=== PATIENT | female | born 1970 | race Two or more races ===

== ENCOUNTER 2023-11-30 10:05 | Outpatient (CLI) | payer OTHER | END 2023-11-30 10:08 | disposition home or self-care (01) | LOC: SONOGRAMA 10:05 | PROVIDERS: ATTEND Pathology Anatomic Pathology & Clinical Pathology | DX: D44.0 Neoplasm of uncertain behavior of thyroid gland (principal); E04.2 Nontoxic multinodular goiter ==

== ENCOUNTER 2024-03-21 10:45 | Inpatient (IN) | payer OTHER ==
[~2024-03-21] VITALS: Ht 91.4 cm; Wt 5.0 kg
[2024-03-21 12:20] VITALS: BP 116/79
[2024-03-21] MEDS ORDERED: COZAAR25 MG PO (12:23)
[2024-03-21] MEDS ORDERED: JARDIANCE10 MG PO (12:24)
[2024-03-21] MEDS ORDERED: TRIGLIDE (12:24)
[2024-03-21 12:25] LABS: URINE APPEARANCE Clear; URINE BILIRRUBIN Negative (NEGATIVE); URINE BLOOD Negative; URINE COLOR Yellow; URINE KETONE Negative (NEGATIVE); URINE LEUKOCYTE Negative; URINE NITRATE Negative; URINE UROBILINOGEN 0.2 E.U./dl
[2024-03-21] MEDS ORDERED: LOVAZA1 GM PO (12:25)
[2024-03-21] MEDS ORDERED: SODIUM BICARBO650 MG PO (12:26)
[2024-03-21] MEDS ORDERED: ABILIFY5 MG PO (12:26)
[2024-03-21] MEDS ORDERED: VISTARIL25 MG (12:27)
[2024-03-21 12:28] LABS: HEMATOCRIT 44.5 % (36.0-45.00); MEAN CELL VOLUME 89.4 fL (80.00-100.00); MEAN CORPUSCULAR HEMOGLOBIN 30.1 pg (27.00-32.0); MEAN CORPUSCULAR HGB CONC 33.7 g/dl (32.0-36.0); PLATELET COUNT 266 K/uL (150-450); RED BLOOD COUNT 4.98 M/uL (4.00-6.00); RED CELL DISTRIBUTION WIDTH 13.7 % (11.5-14.5)
[2024-03-21 12:33] LABS: URINE BACTERIA 127.1 uL (0.0-1933); URINE EPITHELIAL CELLS 34.7 uL (0.0-38.8); URINE WBC 69.2 uL (0.0-23.2)
[2024-03-21 12:52] LABS: INR 1.05; PARTIAL THROMBOPLASTIN TIME 28.1 SECONDS (22.0-34.0); PROTHROMBIN TIME 11.4 SECONDS (9.0-11.5)
[2024-03-21 13:11] LABS: URINE CAST 0.15 uL (0.0-1.40); URINE GLUCOSE >=1000 MG/DL (NEGATIVE); URINE PROTEIN 100 (NEGATIVE); URINE RBC 0.4 uL (0.0-20.8)
[2024-03-21 13:43] LABS: ALBUMIN 4.2 gm/dL (3.4-5.0); BILIRUBIN TOTAL 0.53 mg/dL (0.3-1.2); CALCIUM 10.3 mg/dL (8.5-10.1); CREATININE SERUM 1.56 mg/dL (0.55-1.02); GFR 34.46; GLOBULINA 4.5 G/DL (2.4-3.5); POTASSIUM 4.28 mEq/L (3.5-5.1); TOTAL PROTEIN 8.7 gm/dL (6.4-8.2)
[2024-04-01] MEDS ORDERED: DEXAMETHASONE SODIUM PHOSPHATE 4 MG/ML VIAL IV ONE (12:15)
[2024-04-01] MEDS ORDERED: CEFAZOLIN SODIUM 1,000 MG VIAL IV ONE (12:15)
[2024-04-01] MEDS ORDERED: Calcium Carbonate 1 TAB TABLET PO SCH (13:08)
[2024-04-01] MEDS ORDERED: ACETAMINOPHEN 500 MG GEL..CAP PO SCH (13:10)
[2024-04-01] MEDS ORDERED: CYCLOBENZAPRINE HCL 5 MG TABLET PO SCH (13:10)
[2024-04-01] MEDS ORDERED: TRAMADOL HCL 50 MG TABLET PO SCH (13:10)
[2024-04-01] MEDS ORDERED: ENALAPRILAT DIHYDRATE 1.25 MG/ML VIAL IV PRN (13:15)
[2024-04-01] MEDS ORDERED: ONDANSETRON HCL 2 MG/ML VIAL IV PRN (13:15)
[2024-04-01] MEDS ORDERED: RINGERS SOLUTION,LACTATED 1,000 ML IV SCH (13:15)
[2024-04-01] MEDS ORDERED: MORPHINE SULFATE 4 MG/ML VIAL IV ONE ×2 (13:30→14:30)
[2024-04-01] MEDS ORDERED: CALCITRIOL 0.25 MCG CAPSULE PO SCH (17:00)
[2024-04-01 20:06] VITALS: BP 104/66; O2SAT 94
[2024-04-01] MEDS ORDERED: PANTOPRAZOLE SODIUM 40 MG/VIAL VIAL IV PUSH SCH (21:00)
[2024-04-02 01:31] VITALS: BP 139/83; O2SAT 97
[2024-04-02] MEDS ORDERED: LEVOTHYROXINE SODIUM 175 MCG TABLET PO SCH (06:00)
[2024-04-02 08:30] VITALS: BP 143/73; O2SAT 95
== END 2024-04-02 13:19 | disposition home or self-care (01) | DRG 627 ==
LOC: O/R 04-01 05:22 → SURH 04-01 10:45
PROVIDERS: ADMIT Surgery; ATTEND Surgery
PROC: 0GTH0ZZ Resection of Right Thyroid Gland Lobe, Open Approach (ICD-10-PCS; principal; 2024-04-01 12:15)
DX: C73 Malignant neoplasm of thyroid gland (principal); E05.00 Thyrotoxicosis with diffuse goiter without thyrotoxic crisis or storm; Z20.822 Contact with and (suspected) exposure to COVID-19